=== PATIENT | male | born 1965 | race Two or more races ===

== ENCOUNTER 2018-11-29 11:10 | Outpatient (CLI) | payer OTHER ==
[~2018-11-29 11:10] MED LIST: SYNTHROID125 MCG PO
== END 2018-11-29 11:12 | disposition home or self-care (01) ==
LOC: SONOGRAMA 11:10
DX: R31.21 Asymptomatic microscopic hematuria (principal)

== ENCOUNTER 2018-12-16 10:21 | Outpatient (CLI) | payer OTHER | END 2018-12-16 10:25 | disposition home or self-care (01) | LOC: SONOGRAMA 10:21 → MAMO-SONO 10:45 | DX: E03.8 Other specified hypothyroidism (principal); R13.19 Other dysphagia ==

== ENCOUNTER 2019-03-21 13:49 | Outpatient (CLI) | payer OTHER | END 2019-03-21 13:52 | disposition home or self-care (01) | LOC: TOM 13:49 | DX: J43.2 Centrilobular emphysema (principal) ==

== ENCOUNTER 2020-04-22 08:54 | Outpatient (CLI) | payer OTHER | END 2020-04-22 09:04 | disposition home or self-care (01) | LOC: SONOGRAMA 08:54 | PROVIDERS: ATTEND Urology | DX: R31.29 Other microscopic hematuria (principal) ==

== ENCOUNTER 2021-03-03 07:09 | Outpatient (CLI) | payer OTHER | END 2021-03-03 07:23 | disposition home or self-care (01) | LOC: RAD 07:09 → MAMO-SONO 07:15 → RAD 07:23 | PROVIDERS: ATTEND Urology | DX: S84.10XA Injury of peroneal nerve at lower leg level, unspecified leg, initial encounter (principal); K31.1 Adult hypertrophic pyloric stenosis; S90.32XA Contusion of left foot, initial encounter | CPT/HCPCS: 73718 ==

== ENCOUNTER 2021-04-01 13:21 | Outpatient (CLI) | payer OTHER | END 2021-04-01 13:36 | disposition home or self-care (01) | LOC: LAB 13:21 | PROVIDERS: ATTEND Radiology Diagnostic Radiology | DX: Z51.81 Encounter for therapeutic drug level monitoring (principal) ==

== ENCOUNTER 2021-04-02 07:46 | Outpatient (CLI) | payer OTHER | END 2021-04-02 08:04 | disposition home or self-care (01) | LOC: MRI 07:46 | PROVIDERS: ATTEND Neuromusculoskeletal Medicine & OMM | DX: G93.89 Other specified disorders of brain (principal); R13.19 Other dysphagia | CPT/HCPCS: 70553 ==

== ENCOUNTER 2021-10-01 15:30 | Emergency (ER) | payer OTHER ==
[~2021-10-01] VITALS: Ht 175.3 cm; Wt 78.9 kg
[2021-10-01] MEDS ORDERED: ACID REDUCER20 M1 (15:40)
[2021-10-01] MEDS ORDERED: BUDESONIDE1 MG/2 ML (15:40)
[2021-10-01] MEDS ORDERED: FLUCONAZOLE150 MG PO (18:35)
== END 2021-10-01 18:48 | disposition home or self-care (01) ==
LOC: ER 15:30
DX: B37.0 Candidal stomatitis (principal); K14.8 Other diseases of tongue; Z20.822 Contact with and (suspected) exposure to COVID-19

== ENCOUNTER 2022-03-03 08:16 | Outpatient (CLI) | payer OTHER ==
[~2022-03-03 08:16] MED LIST changes: +ACID REDUCER20 M1; +BUDESONIDE1 MG/2 ML; +FLUCONAZOLE150 MG PO
== END 2022-03-03 08:23 | disposition home or self-care (01) ==
LOC: SONOGRAMA 08:16
PROVIDERS: ATTEND Urology
DX: R31.21 Asymptomatic microscopic hematuria (principal)

== ENCOUNTER 2022-07-24 07:44 | Outpatient (CLI) | payer OTHER | END 2022-07-24 07:57 | disposition home or self-care (01) | LOC: LAB 07:44 | DX: E89.0 Postprocedural hypothyroidism (principal); I10 Essential (primary) hypertension ==

== ENCOUNTER 2023-03-10 10:29 | Outpatient (CLI) | payer OTHER | END 2023-03-10 10:44 | disposition home or self-care (01) | LOC: SONOGRAMA 10:29 | PROVIDERS: ATTEND Urology | DX: R31.1 Benign essential microscopic hematuria (principal) ==

== ENCOUNTER 2023-07-19 07:17 | Outpatient (CLI) | payer OTHER | END 2023-07-19 07:25 | disposition home or self-care (01) | LOC: RAD 07:17 | PROVIDERS: ATTEND Internal Medicine Geriatric Medicine | DX: M50.10 Cervical disc disorder with radiculopathy, unspecified cervical region (principal) ==